=== PATIENT | male | born 1980 | race Hispanic/Latino ===

== ENCOUNTER → 2019-07-08 | Outpatient (CLI) | payer BC ==
[~2019-07-08] MED LIST: DESMOPRESSIN A0.1 M1
--- NOTE | 2019-07-08 09:40 | Diagnostic Imaging Report ---
EXAM: [facility] W/CXR DATE: 07/08/2019 7:56 AM INDICATION: Fall, right-sided chest pain COMPARISON: None FINDINGS: The trachea is midline. The lungs are symmetrically expanded without evidence for large focal consolidation, pneumothorax, or significant pleural effusion. The cardiomediastinal silhouette and pulmonary vasculature are within normal limits. Mildly displaced right fourth rib fracture and possibly minimally displaced right third rib fracture identified. There is no evidence of callus formation suggesting acute time frame. No other acute osseous abnormality is appreciated. IMPRESSION: Mildly displaced right fourth rib fracture and suspected minimally displaced right third rib fracture. No other acute cardiopulmonary process identified. Signed by: Dr. Baljit Grover MD on 07/08/2019 9:37 AM
== END ==
LOC: RAD 07:19
PROVIDERS: ATTEND Family Medicine
DX: R07.89 Other chest pain (principal); S22.31XA Fracture of one rib, right side, initial encounter for closed fracture; W19.XXXA Unspecified fall, initial encounter
CPT/HCPCS: 71101

== ENCOUNTER → 2021-01-01 | Outpatient (CLI) | payer BC | LOC: RAD 10:52 | PROVIDERS: ATTEND Family Medicine | DX: Z09 Encounter for follow-up examination after completed treatment for conditions other than malignant neoplasm (principal); J18.9 Pneumonia, unspecified organism | CPT/HCPCS: 71046 ==